=== PATIENT | male | born 1985 | race Two or more races ===

== ENCOUNTER 2018-04-15 17:25 | Emergency (ER) | payer BC ==
[~2018-04-15] VITALS: Ht 162.6 cm; Wt 77.1 kg
[2018-04-15 17:28] VITALS: BP 114/79
[2018-04-15] MEDS ORDERED: Lidocaine 1% 10mg/ml/Epi 0.005mg/ml 30ml vial INJ ONE (17:45)
[2018-04-15] MEDS ORDERED: Norco 5mg/325mg tab ORAL ONE (18:45)
[2018-04-15] MEDS ORDERED: Bacitracin Oint UD TOPIC ONE (19:00)
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
[2018-04-15] MEDS ORDERED: BACITRACIN-P28.35 GM TP (19:05)
[2018-04-15] MEDS ORDERED: NORCO 5-325 TA1 EACH ORAL (19:05)
[2018-04-15 19:15] VITALS: BP 110/78
[2018-04-15 19:19] VITALS: BP 110/78
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
== END 2018-04-15 19:19 | disposition home or self-care (01) ==
LOC: EDBD 17:25 → EMR 17:56
DX: S01.81XA Laceration without foreign body of other part of head, initial encounter (principal); S00.11XA Contusion of right eyelid and periocular area, initial encounter; Y04.2XXA Assault by strike against or bumped into by another person, initial encounter; Y92.9 Unspecified place or not applicable
CPT/HCPCS: 70450; 70486; 99284